=== PATIENT | male | born 1975 | race Caucasian/White ===

== ENCOUNTER 2021-01-06 14:28 | Emergency (ER) | payer OTHER, SELFPAY ==
[2021-01-06 14:44] VITALS: BP 113/82; PULSE 124; RESP 20; TEMP 36.7; O2SAT 98
--- NOTE | 2021-01-06 14:47 | ECG_ITS ---
Measurements Intervals [place] Rate: 104 P: 51 FL: 184 QRS: 25 QRSD: 107 T: 51 QT: 331 QTc: 436 Interpretive Statements SINUS TACHYCARDIA BORDERLINE ECG Electronically Signed On 01-06-2021 15:25:17 CDT by Eyal Werner D.O.
--- NOTE | 2021-01-06 14:54 | PC.NURSE ---
States he is feeling better and is going to leave. Ambulatory out of dept with steady gait.
== END 2021-01-06 14:31 | disposition left against medical advice (07) ==
PROVIDERS: Emergency Provider Emergency Medicine
DX: T75.4XXA Electrocution, initial encounter (principal)
CPT/HCPCS: 93005; 99199